=== PATIENT | female | born 1985 | race Caucasian/White ===

== ENCOUNTER 2017-10-10 05:51 | Inpatient (IN) | payer BC ==
[~2017-10-10] VITALS: Ht 177.8 cm; Wt 131.8 kg
[2017-10-10 06:50] LABS: COLLECTION METHOD CLEAN CATCH
[2017-10-10 07:06] LABS: BASO # 0.1 (0.0-0.2); BASO % 0.5 % (0.0-2.0); GRAN # 11.1 (1.4-6.5); GRAN % 85.7 % (42.2-75.2); HEMATOCRIT 37.8 % (37.0-47.0); LYMPH # 1.3 (1.2-3.4); LYMPH % 9.7 % (20.0-51.0); MEAN CELL VOLUME 77 fl (80.0-100.0); MEAN CORPUSCULAR HEMOGLOBIN 25 pg (27.0-31.0); MEAN CORPUSCULAR HGB CONC 32 g/dl (33.0-37.0); MEAN PLATELET VOLUME 10.5 fl (7.4-10.4); MONO # 0.5 (0.1-0.6); MONO % 3.7 % (1.7-9.3); PLATELET COUNT 394 K/mm3 (130-400); RED BLOOD COUNT 4.89 M/mm3 (4.10-5.30); REDCELL DISTRIBUTION WIDTH-CV 16.3 % (11.5-14.5)
[2017-10-10 07:07] LABS: ALANINE AMINOTRANSFERASE 27 U/L (9-52); ALBUMIN 4.3 gm/dL (3.5-5.0); ALKALINE PHOSPHATASE 77 U/L (50-136); ANION GAP 14 mmol/L (7-16); AST,SGOT 25 U/L (15-37); BILIRUBIN,TOTAL 0.4 mg/dL (0.0-1.0); BLOOD UREA NITROGEN 9 mg/dL (7-17); CALCIUM 9.7 mg/dL (8.4-10.2); CARBON DIOXIDE 26 mmol/L (22-30); CHLORIDE 102 mmol/L (98-107); CREATININE, serum 0.69 mg/dL (0.52-1.25); GLUCOSE 122 mg/dL (74-106); LIPASE 48 U/L (23-300); POTASSIUM 3.7 mmol/L (3.4-5.0); SODIUM 141 mmol/L (137-145); TOTAL PROTEIN 7.7 gm/dL (6.4-8.2)
[2017-10-10 07:16] LABS: C-REACTIVE PROTEIN < 0.5 mg/dL (0.0-0.9)
[2017-10-10 07:20] LABS: PH 5 (5-8); URINE APPEARANCE Cloudy; URINE COLOR Yellow
[2017-10-10 07:21] LABS: URINE GLUCOSE Negative (NEGATIVE); URINE KETONE Trace (NEGATIVE); URINE PROTEIN(semi-quant) 1+ (NEGATIVE)
[2017-10-10 07:22] LABS: URINE BILIRUBIN Negative (NEGATIVE); URINE BLOOD Negative (NEGATIVE); URINE LEUKOCYTE ESTERASE 2+ (NEGATIVE); URINE NITRATE Negative (NEGATIVE); URINE UROBILINOGEN Negative (NEGATIVE)
[2017-10-10 07:33] LABS: AMORPHOUS CRYSTAL Present /uL; MUCOUS Present /lpf; SQUAMOUS EPITHELIAL 0-2 /hpf; URINE BACTERIA Moderate /hpf; URINE RBC 0-2 /hpf
[2017-10-10 12:42] VITALS: BP 191/81; PULSE 50; TEMP 97.9
[2017-10-10 13:19] VITALS: BP 191/81; PULSE 50; TEMP 97.9
[2017-10-10 20:30] VITALS: BP 134/53; PULSE 69; TEMP 98.3
[2017-10-10 23:20] VITALS: BP 130/60; PULSE 89; TEMP 97.9
[2017-10-10 23:35] VITALS: BP 118/48; PULSE 75; TEMP 97.9
[2017-10-11] VITALS (10 sets, daily range): BP systolic 92–128; BP diastolic 41–72; PULSE 56–90; TEMP 98–98.8
[2017-10-11] MEDS ORDERED: IBU600 MG PO (07:33)
[2017-10-11] MEDS ORDERED: PERCOCET 325 MG1 TA2 PO (07:34)
[2017-10-11] MEDS ORDERED: MACROBID 1100 MG/CAP PO (07:34)
[2017-10-11 07:41] LABS: BASO % 0.1 % (0.0-2.0); GRAN % 86.2 % (42.2-75.2); LYMPH # 0.7 (1.2-3.4); LYMPH % 4.7 % (20.0-51.0); MEAN CELL VOLUME 78 fl (80.0-100.0); MEAN CORPUSCULAR HGB CONC 31 g/dl (33.0-37.0); MEAN PLATELET VOLUME 10.3 fl (7.4-10.4); MONO # 1.2 (0.1-0.6); MONO % 8.5 % (1.7-9.3); RED BLOOD COUNT 4.03 M/mm3 (4.10-5.30)
[2017-10-11 07:46] LABS: ALBUMIN 3.2 gm/dL (3.5-5.0); BILIRUBIN,TOTAL 0.6 mg/dL (0.0-1.0); CALCIUM 8.5 mg/dL (8.4-10.2); CREATININE, serum 0.64 mg/dL (0.52-1.25); POTASSIUM 4.1 mmol/L (3.4-5.0); TOTAL PROTEIN 6.3 gm/dL (6.4-8.2)
[2017-10-11 07:52] LABS: HEMATOCRIT 31.5 % (37.0-47.0); HEMOGLOBIN 9.7 g/dl (12.5-16.0); MEAN CORPUSCULAR HEMOGLOBIN 24 pg (27.0-31.0); PLATELET COUNT 278 K/mm3 (130-400)
[2017-10-12 06:30] VITALS: BP 110/57; PULSE 58; TEMP 97.7
[2017-10-12 11:08] VITALS: BP 126/49; PULSE 62; TEMP 98.2
[2017-10-12 14:45] VITALS: BP 124/49; PULSE 57; TEMP 97.8
[2017-10-12 17:43] VITALS: BP 117/54; PULSE 53; TEMP 97.4
[2017-10-12 21:15] VITALS: BP 137/68; PULSE 60; TEMP 97.4
[2017-10-13 01:06] VITALS: BP 145/64; PULSE 52; TEMP 97.5
[2017-10-13 05:08] VITALS: BP 120/61; PULSE 55; TEMP 98.1
[2017-10-13 06:45] VITALS: BP 135/75; PULSE 51; TEMP 97.3
== END 2017-10-13 10:17 | disposition home or self-care (01) | DRG 742 ==
LOC: COL.ER 05:51 → OB 09:33
PROVIDERS: Emergency Medicine; Obstetrics & Gynecology
PROC: 0UB60ZZ Excision of Left Fallopian Tube, Open Approach (ICD-10-PCS; 2017-10-10)
PROC: 0UT50ZZ Resection of Right Fallopian Tube, Open Approach (ICD-10-PCS; principal; 2017-10-10 16:30)
PROC: 0UT00ZZ Resection of Right Ovary, Open Approach (ICD-10-PCS; 2017-10-10 16:30)
DX: N83.511 Torsion of right ovary and ovarian pedicle (principal); R18.8 Other ascites; N39.0 Urinary tract infection, site not specified; N83.8 Other noninflammatory disorders of ovary, fallopian tube and broad ligament
CPT/HCPCS: A4314; J0696; J1885; J2250; J2270; J2405; J2704; J3010; J7030; J7120; Q9967